=== PATIENT | male | born 1950 | race Caucasian/White ===

== ENCOUNTER 2019-04-20 16:10 | Emergency (ER) | payer OTHER ==
[~2019-04-20] VITALS: Ht 180.3 cm; Wt 77.1 kg
--- NOTE | 2019-04-20 16:27 | NUR ---
ED Nurse Note: Pt ambulated to ED d/t abdominal pain after pulling out his suprapubic catheter last night. Pt is AOx4, VSS, on RA. Placed on bed, Dr. Macario on bedside.
[2019-04-20 16:40] VITALS: BP 140/91
[2019-04-20] MEDS ORDERED: Morphine Sulfate 4mg/ml Inj (IV USE ONLY) IVP ONE (16:45)
--- NOTE | 2019-04-20 16:57 | Emergency Room Report ---
History of Present Illness General Chief Complaint: Abdominal Pain Source: Patient Present Illness HPI Disclaimer: Please note that this report is being documented using [employer] technology. This can lead to erroneous entry secondary to incorrect interpretation by the dictating instrument. HPI: 68-year-old male history of CKD and BPH presents for evaluation of abdominal pain and distention. Symptoms started approximately 14 hours ago. He states that over the past few months he has been seen at [facility] and diagnosed with an enlarged prostate as well as chronic kidney disease. He has had an indwelling Lemus for 2 months. Noted decrease output and foul smell to the urine over the past few days. He removed his Lemus catheter yesterday. He notes worsening abdominal pain distention and inability to urinate. He is following up with urology who have recommended surgery for his enlarged prostate however the patient is seeking alternative medications at this time. He denies fever or chills. He did note some right-sided flank pain but that is now resolved. Denies vomiting or diarrhea. Denies chest pain or shortness of breath. PMH: CKD, BPH PSH: Denies Allergies: Denies Social Hx: Occasional alcohol use Allergies: Coded Allergies: No Known Allergies (Unverified , 04/20/19) Nursing Documentation-PMH Past Medical History: No History, Except For Review of Systems All Other Systems: negative except mentioned in HPI Physical Exam Vital Signs Date Time Temp Pulse Resp B/P (MAP) Pulse Ox O2 Delivery O2 Flow Rate FiO2 04/20/19 16:16 97.5 94 20 140/91 (107) 99 Room Air General: Awake and alert, no acute distress HEENT: NC/AT. EOMI. Cardiovascular: RRR. S1 and S2 normal. No murmur appreciated Resp: Normal work of breathing. No cough, wheezing or crackles appreciated Abdomen: Mild suprapubic abdominal pain and mild distention. Non-peritonitic. No flank tenderness Skin: Intact. No abrasions, laceration or rash over the exposed skin MSK: Normal tone and bulk. Moving all extremities. No obvious deformity. Neuro: Awake and alert. Mentating appropriately. Medical Decision Making Diagnostic Impression: Primary Impression: UTI (urinary tract infection) Additional Impressions: Urinary retention CKD (chronic kidney disease) ER Course 68-year-old male with a history of BPH urinary retention and CKD presents for evaluation of abdominal pain and distention, foul-smelling urine for the past few days. He has now removed his Lemus catheter for 14 hours and notes worsening pressure and distention. Concern for urinary tract infection, pyelonephritis at this time. Will send labs to evaluate for kidney function, replace Lemus catheter, send urinalysis. Laboratory Tests Test 04/20/19 16:43 04/20/19 17:11 White Blood Count 10.3 K/UL (4.8-10.8) Red Blood Count 3.88 M/UL (4.70-6.10) L Hemoglobin 12.2 G/DL (14.2-18.0) L Hematocrit 37.8 % (42.0-52.0) L Mean Corpuscular Volume 98 FL (80-99) Mean Corpuscular Hemoglobin 31.5 PG (27.0-31.0) H Mean Corpuscular Hemoglobin Concent 32.3 G/DL (32.0-36.0) Red Cell Distribution Width 12.5 % (11.6-14.8) Platelet Count 356 K/UL (150-450) Mean Platelet Volume 7.4 FL (6.5-10.1) Neutrophils (%) (Auto) 89.2 % (45.0-75.0) H Lymphocytes (%) (Auto) 4.6 % (20.0-45.0) L Monocytes (%) (Auto) 5.4 % (1.0-10.0) Eosinophils (%) (Auto) 0.2 % (0.0-3.0) Basophils (%) (Auto) 0.6 % (0.0-2.0) Sodium Level 135 MMOL/L (136-145) L Potassium Level 5.1 MMOL/L (3.5-5.1) Chloride Level 99 MMOL/L (98-107) Carbon Dioxide Level 25 MMOL/L (21-32) Anion Gap 11 mmol/L (5-15) Blood Urea Nitrogen 29 mg/dL (7-18) H Creatinine 1.5 MG/DL (0.55-1.30) H Estimate Glomerular Filtration Rate 46.4 mL/min (>60) Glucose Level 146 MG/DL (74-106) H Calcium Level 10.4 MG/DL (8.5-10.1) H Total Bilirubin 0.3 MG/DL (0.2-1.0) Aspartate Amino Transferase (AST) 7 U/L (15-37) L Alanine Aminotransferase (ALT) 25 U/L (12-78) Alkaline Phosphatase 69 U/L (46-116) Total Protein 8.3 G/DL (6.4-8.2) H Albumin 4.2 G/DL (3.4-5.0) Globulin 4.1 g/dL Albumin/Globulin Ratio 1.0 (1.0-2.7) Urine Color Yellow Urine Appearance Cloudy Urine pH 6 (4.5-8.0) Urine Specific [place] 1.010 (1.005-1.035) Urine Protein 1+ (NEGATIVE) H Urine Glucose (UA) Negative (NEGATIVE) Urine Ketones Negative (NEGATIVE) Urine Blood 3+ (NEGATIVE) H Urine Nitrite Negative (NEGATIVE) Urine Bilirubin Negative (NEGATIVE) Urine Urobilinogen Normal MG/DL (0.0-1.0) Urine Leukocyte Esterase 3+ (NEGATIVE) H Urine RBC 5-10 /HPF (0 - 0) H Urine WBC Tntc /HPF (0 - 0) H Urine Squamous Epithelial Cells None /LPF (NONE/OCC) Urine Bacteria Many /HPF (NONE) H Reevaluation Time: 22:30 Last Vital Signs Date Time Temp Pulse Resp B/P (MAP) Pulse Ox O2 Delivery O2 Flow Rate FiO2 04/20/19 16:16 97.5 94 20 140/91 (107) 99 Room Air Reevaluation Impression Patient had moderate urinary retention though after placement of Lemus catheter he had significant improvement in his symptoms. Urinalysis consistent with acute urinary tract infection. Labs otherwise shows a slightly elevated creatinine and BUN consistent with his chronic kidney disease. No significant white count though there is a neutrophil predominance. Had ordered ceftriaxone for the patient however he refused. He states he does not want IV antibiotics at this time. He is amenable to taking oral medications simply does not want the IV forms. Patient states he is seeking alternative treatment remedies for his enlarged prostate although his urologist had recommended surgery. I strongly encouraged him to again speak with his urologist regarding treatment options and his diagnosis of urinary tract infection. 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 Clinically, he has no signs of pyelonephritis. We will start the patient on Augmentin. He will follow-up with his urologist and portfolio management marketing as well as PMD. Discussed reasons to return to the emergency department. He understands and agrees with this treatment plan. Disposition: HOME, SELF-CARE Condition: Improved Scripts Amoxicillin/Potassium Clav 875-125* (AUGMENTIN 875-125 TABLET*) 1 Each Tablet 1 TAB ORAL TWICE A DAY for 10 Days, #20 TAB Prov: Jimmy Macario MD 04/20/19 Referrals: [facility],REFERRING (PCP) Jimmy Macario MD Apr 20, 2019 16:57
--- NOTE | 2019-04-20 17:00 | NUR ---
ED Nurse Note: Lemus catheter with 16F inserted, pt tolerated well. Noted yellowish clear urine for about 2000cc. Pt verbalized relieved from pain. Will continue to monitor.
[2019-04-20 17:03] LABS: HEMATOCRIT 37.8 % (42.0-52.0); HEMOGLOBIN 12.2 G/DL (14.2-18.0); MEAN CORPUSCULAR VOLUME 98 FL (80-99); PLATELET COUNT 356 K/UL (150-450); RED BLOOD COUNT 3.88 M/UL (4.70-6.10); RED CELL DISTRIBUTION WIDTH 12.5 % (11.6-14.8); WHITE BLOOD COUNT 10.3 K/UL (4.8-10.8)
[2019-04-20 17:05] LABS: BASOPHILS % (AUTO) 0.6 % (0.0-2.0); EOSINOPHILS % (AUTO) 0.2 % (0.0-3.0); LYMPHOCYTES % (AUTO) 4.6 % (20.0-45.0); MONOCYTES % (AUTO) 5.4 % (1.0-10.0); NEUTROPHILS % (AUTO) 89.2 % (45.0-75.0)
--- NOTE | 2019-04-20 17:07 | NUR ---
ER DISCHARGE NOTE: Patient is cleared to be discharged per ERMD, pt is aox4, on room air, with stable vital signs. pt was given dc and prescription instructions, pt was able to verbalize understanding, pt id band and iv site removed without complications. pt is able to ambulate with steady gait. pt took all belongings.
--- NOTE | 2019-04-20 17:20 | NUR ---
ED Nurse Note: Per Dr. Macario, cancelled giving Rocephin 1gm; per pt's request.
[2019-04-20 17:21] LABS: APPEARANCE,URINE CLOUDY; BILIRUBIN, URINE NEGATIVE (NEGATIVE); GLUCOSE, URINE (UA) NEGATIVE (NEGATIVE); KETONES,URINE NEGATIVE (NEGATIVE); LEUKOCYTE ESTERASE ,URINE 3+ (NEGATIVE); NITRITE,URINE NEGATIVE (NEGATIVE); PH,URINE 6 (4.5-8.0); PROTEIN,URINE 1+ (NEGATIVE); UROBILINOGEN,URINE NORMAL MG/DL (0.0-1.0)
[2019-04-20 17:24] LABS: COLOR,URINE YELLOW
[2019-04-20 17:27] LABS: ANION GAP 11 mmol/L (5-15); BLOOD UREA NITROGEN 29 mg/dL (7-18); CALCIUM 10.4 MG/DL (8.5-10.1); CARBON DIOXIDE 25 MMOL/L (21-32); CHLORIDE 99 MMOL/L (98-107); CREATININE 1.5 MG/DL (0.55-1.30); POTASSIUM 5.1 MMOL/L (3.5-5.1); SODIUM 135 MMOL/L (136-145)
[2019-04-20 17:32] LABS: ALANINE AMINOTRANSFERASE 25 U/L (12-78); ALBUMIN 4.2 G/DL (3.4-5.0); ALKALINE PHOSPHATASE 69 U/L (46-116); ASPARTATE AMINO TRANSFERASE 7 U/L (15-37); BILIRUBIN,TOTAL 0.3 MG/DL (0.2-1.0)
[2019-04-20] MEDS ORDERED: cefTRIAXone 1 GM in NS 55 ML IVPB ONE (17:45)
[2019-04-20] MEDS ORDERED: AUGMENTIN 875-1 EAC1 ORAL ×2 (18:06)
[2019-04-20 18:31] VITALS: BP 140/91
== END 2019-04-20 17:07 | disposition home or self-care (01) ==
LOC: EMR 16:31
DX: N39.0 Urinary tract infection, site not specified (principal); N40.1 Benign prostatic hyperplasia with lower urinary tract symptoms; R33.8 Other retention of urine; N18.9 Chronic kidney disease, unspecified
CPT/HCPCS: 36415; 51702; 80053; 81003; 85025; 87086; 87181; 96374; 99284; J2270

== ENCOUNTER 2019-05-31 03:03 | Emergency (ER) | payer OTHER ==
[~2019-05-31] VITALS: Ht 180.3 cm; Wt 74.8 kg
[~2019-05-31 03:03] MED LIST: AUGMENTIN 875-1 EAC1 ORAL
--- NOTE | 2019-05-31 03:15 | NUR ---
ED Nurse Note: PT WALKED IN TO ED FROM HOME C/O URINARY CATHETER COMPLICATION WITH DYSURIA X2DAYS. PT STATES HE DRAINING LESS URINE THAN USUAL AND STATES HIS URINE IS CLOUDY X2DAYS. DENIES FEVER. AAOX4, AMBULATORY
[2019-05-31 03:25] VITALS: BP 136/91
--- NOTE | 2019-05-31 03:31 | Emergency Room Report ---
History of Present Illness General Chief Complaint: Male Urogenital Problems Source: Patient Present Illness [facility] Disclaimer: Please note that this report is being documented using [employer] technology. This can lead to erroneous entry secondary to incorrect interpretation by the dictating instrument. HPI: 68-year-old male history of CKD and BPH presents for abdominal discomfort and decreased urination. Symptoms present approximately 2 days. He noticed lower pelvic cramping and decreased outflow from his indwelling Lemus catheter. He also noted a more thick and mucoid appearance to the urine and increased cloudiness. He denies fever or chills. Denies flank or back pain. Denies nausea, vomiting or diarrhea. He has an appointment with his urologist, Dr. Good , in 3 days. 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 Denies pain in the testicles or penile discharge, bleeding otherwise. PMH: CKD, BPH PSH: Denies Allergies: Denies Social Hx: Occasional alcohol use COVID-19 risk:Contact w/high r: No COVID-19 risk:Travel to affect: No Has patient experienced frausto: No Allergies: Coded Allergies: No Known Allergies (Unverified , 04/20/19) Nursing Documentation-PMH Past Medical History: No History, Except For Review of Systems All Other Systems: negative except mentioned in HPI Physical Exam Vital Signs Date Time Temp Pulse Resp B/P (MAP) Pulse Ox O2 Delivery O2 Flow Rate FiO2 05/31/19 03:10 98.1 91 18 136/91 (106) 98 Room Air General: Awake and alert, no acute distress HEENT: NC/AT. EOMI. Resp: Normal work of breathing Abdomen: Soft, nondistended. Tenderness in the suprapubic region. No significant tenderness in the right or left lower quadrants. No masses. No rebound. : Lemus in place. No urethral discharge or bleeding. Testes in anatomic position. Skin: Intact. No abrasions, laceration or rash over the exposed skin MSK: Normal tone and bulk. Moving all extremities. No obvious deformity. Neuro: Awake and alert. Mentating appropriately Medical Decision Making Diagnostic Impression: Primary Impression: UTI (urinary tract infection) Additional Impression: CKD (chronic kidney disease) ER Course 68-year-old male history of BPH with chronic indwelling Lemus presents for evaluation of lower abdominal pain and cloudy urine for the past 2 days. Strong suspicion for recurrence of his urinary tract infection or possible obstruction of his Lemus. Lemus was replaced and UA was sent. Laboratory Tests Test 05/31/19 03:35 05/31/19 04:00 Sodium Level 127 MMOL/L (136-145) L Potassium Level 4.3 MMOL/L (3.5-5.1) Chloride Level 93 MMOL/L (98-107) L Carbon Dioxide Level 25 MMOL/L (21-32) Anion Gap 10 mmol/L (5-15) Blood Urea Nitrogen 27 mg/dL (7-18) H Creatinine 1.5 MG/DL (0.55-1.30) H Estimated Glomerular Filtration Rate 46.4 mL/min (>60) Glucose Level 110 MG/DL (74-106) H Calcium Level 9.5 MG/DL (8.5-10.1) Urine Color Pale yellow Urine Appearance Cloudy Urine pH 8 (4.5-8.0) Urine Specific [place] 1.015 (1.005-1.035) Urine Protein 3+ (NEGATIVE) H Urine Glucose (UA) Negative (NEGATIVE) Urine Ketones Negative (NEGATIVE) Urine Blood 5+ (NEGATIVE) H Urine Nitrite Positive (NEGATIVE) H Urine Bilirubin Negative (NEGATIVE) Urine Urobilinogen Normal MG/DL (0.0-1.0) Urine Leukocyte Esterase 3+ (NEGATIVE) H Urine RBC Tntc /HPF (0 - 0) H Urine WBC Tntc /HPF (0 - 0) H Urine Squamous Epithelial Cells Occasional /LPF Urine Bacteria Moderate /HPF (NONE) H Reevaluation Time: 05:49 Last Vital Signs Date Time Temp Pulse Resp B/P (MAP) Pulse Ox O2 Delivery O2 Flow Rate FiO2 05/31/19 03:10 98.1 91 18 136/91 (106) 98 Room Air Reevaluation Impression Kidney function unchanged from patient's baseline. He again shows evidence of acute urinary tract infection. Review of culture results from previous infection shows resistance to ciprofloxacin. Will start on Keflex. Had offered the patient an IV dose of ceftriaxone however he again refused IV antibiotics. He has an appointment to follow-up with his urologist in 3 days. I encouraged him to keep that appointment and to take the antibiotics until he meets with his urologist. His urologist can call for culture results. Lemus catheter was exchanged for a new one. Draining adequate urine. Otherwise, he is well-appearing stable vital signs and appropriate for outpatient follow-up. We discussed reasons to return to the emergency department. He understands and agrees with treatment plan. Disposition: HOME, SELF-CARE Condition: Stable Scripts Cephalexin* (KEFLEX*) 500 Mg Capsule 500 MG ORAL EVERY 12 HOURS, #14 CAP 0 Refills Prov: Jimmy Macario MD 05/31/19 Jimmy Macario MD May 31, 2019 03:31
[2019-05-31] MEDS ORDERED: Morphine Sulfate 2mg/ml Inj(IV/IM USE ONLY) IVP ONE (03:45)
[2019-05-31] MEDS ORDERED: Morphine Sulfate 4mg/ml Inj (IV USE ONLY) IVP ONE (03:45)
--- NOTE | 2019-05-31 03:45 | NUR ---
ED Nurse Note: urine and blood collected and sent to lab
[2019-05-31 03:57] LABS: ANION GAP 10 mmol/L (5-15); BLOOD UREA NITROGEN 27 mg/dL (7-18); CALCIUM 9.5 MG/DL (8.5-10.1); CARBON DIOXIDE 25 MMOL/L (21-32); CHLORIDE 93 MMOL/L (98-107); CREATININE 1.5 MG/DL (0.55-1.30); POTASSIUM 4.3 MMOL/L (3.5-5.1); SODIUM 127 MMOL/L (136-145)
[2019-05-31 04:12] LABS: APPEARANCE,URINE CLOUDY; BILIRUBIN, URINE NEGATIVE (NEGATIVE); COLOR,URINE PALE YELLOW; GLUCOSE, URINE (UA) NEGATIVE (NEGATIVE); KETONES,URINE NEGATIVE (NEGATIVE); LEUKOCYTE ESTERASE ,URINE 3+ (NEGATIVE); NITRITE,URINE POSITIVE (NEGATIVE); PH,URINE 8 (4.5-8.0); PROTEIN,URINE 3+ (NEGATIVE); UROBILINOGEN,URINE NORMAL MG/DL (0.0-1.0)
[2019-05-31] MEDS ORDERED: Cephalexin 250mg/5ml Susp 100mL Bottle ORAL ONE (05:30)
[2019-05-31] MEDS ORDERED: CEPHALEXIN500 MG ORAL (05:33)
[2019-05-31] MEDS ORDERED: Cephalexin 500mg cap ORAL ONE (05:45)
[2019-05-31 05:50] VITALS: BP 125/82
== END 2019-05-31 05:50 | disposition home or self-care (01) ==
LOC: EMR 03:26
DX: N39.0 Urinary tract infection, site not specified (principal); N18.9 Chronic kidney disease, unspecified
CPT/HCPCS: 36415; 80048; 81003; 87086; 87181; 96374; 99284; J2270

== ENCOUNTER 2019-06-27 11:36 | Emergency (ER) | payer OTHER ==
[~2019-06-27] VITALS: Ht 180.3 cm; Wt 74.8 kg
[~2019-06-27 11:36] MED LIST changes: +CEPHALEXIN500 MG ORAL
[2019-06-27 11:38] VITALS: BP 131/84
--- NOTE | 2019-06-27 11:45 | NUR ---
ED Nurse Note: patient walked into ED from home c/o possible urinary tract infection. patient c/o abdominal pain and less output in his indwelling cárdenas since last night. patient is alert awake x4 ambulatory, breathing unlabored and even. denies fever. patient placed on a hospital gown.
--- NOTE | 2019-06-27 13:03 | Emergency Room Report ---
History of Present Illness General Chief Complaint: Male Urogenital Problems Source: Patient Present Illness HPI This patient has an indwelling Cárdenas catheter. States he has noticed no urine output in his Cárdenas catheter for the past 15 hours. He states he is having significant pain in his lower abdomen. He states he also thinks he may have a urinary tract infection because his urine has been cloudy for the past 4 days. He denies fever or chills. He denies nausea or vomiting. Denies chest pain shortness of breath. He has no other complaints. Allergies: Coded Allergies: No Known Allergies (Unverified , 04/20/19) COVID-19 Screening Contact w/high risk pt: No Recent Travel to affected area: No Experienced COVID-19 symptoms?: No Patient History Past Medical History: see triage record, renal disease, other - BPH/indwelling cárdenas catheter. Social History: Reports: smoking; Denies: alcohol use, drug use Reviewed Nursing Documentation: PMH: Agreed; PSxH: Agreed Nursing Documentation-PMH Past Medical History: No History, Except For Review of Systems All Other Systems: negative except mentioned in HPI Physical Exam Vital Signs Date Time Temp Pulse Resp B/P (MAP) Pulse Ox O2 Delivery O2 Flow Rate FiO2 06/27/19 11:38 97.9 99 22 131/84 97 Room Air Sp02 EP Interpretation: reviewed, normal General Appearance: no apparent distress, alert, GCS 15, non-toxic Head: normocephalic, atraumatic Eyes: bilateral eye normal inspection ENT: hearing grossly normal, normal pharynx, no angioedema, normal voice Neck: normal inspection, full range of motion Respiratory: no respiratory distress, no retraction, no accessory muscle use, speaking full sentences Gastrointestinal: normal bowel sounds, soft, non-distended, no guarding, no rebound, tenderness - TTP and distended over lower abdomen. Rectal: deferred Genitourinary: normal inspection, other - Cárdenas in place. No urine in bag. Musculoskeletal: back normal, normal range of motion, gait/station normal, non- tender Neurologic: alert, motor strength/tone normal, oriented x3, sensory intact, responsive, speech normal Psychiatric: judgement/insight normal, memory normal, mood/affect normal, no suicidal/homicidal ideation Medical Decision Making Diagnostic Impression: Primary Impression: Obstructed Cárdenas catheter Additional Impression: UTI (urinary tract infection) ER Course This patient has an obstructed Cárdenas catheter. The Cárdenas catheter was in place without complication or incident. Over a liter of clear urine was obtained with complete relief of the patient's pain. Patient has a history of urinary tract infections. I did review the last urine culture and microbiology. The patient was sensitive to Septra at that time. The patient is nontoxic overall and well-appearing without evidence of systemic infection. I will place the patient on a course of Septra. The patient is given close return precautions and follow-up instructions. Laboratory Tests Test 06/27/19 12:35 Urine Color Pending Urine Appearance Pending Urine pH Pending Urine Specific [place] Pending Urine Protein Pending Urine Glucose (UA) Pending Urine Ketones Pending Urine Blood Pending Urine Nitrite Pending Urine Bilirubin Pending Urine Urobilinogen Pending Urine Leukocyte Esterase Pending Last Vital Signs Date Time Temp Pulse Resp B/P (MAP) Pulse Ox O2 Delivery O2 Flow Rate FiO2 06/27/19 11:38 97.9 99 22 131/84 (100) 97 Room Air Status: improved Disposition: HOME, SELF-CARE Condition: Improved Patient Instructions: Urinary Tract Infection Reny Ortega DO Jun 27, 2019 13:02
[2019-06-27 13:20] LABS: APPEARANCE,URINE SLIGHTLY CLOUDY; BILIRUBIN, URINE NEGATIVE (NEGATIVE); COLOR,URINE PALE YELLOW; GLUCOSE, URINE (UA) NEGATIVE (NEGATIVE); KETONES,URINE NEGATIVE (NEGATIVE); LEUKOCYTE ESTERASE ,URINE 3+ (NEGATIVE); NITRITE,URINE NEGATIVE (NEGATIVE); PH,URINE 8 (4.5-8.0); PROTEIN,URINE 2+ (NEGATIVE); UROBILINOGEN,URINE NORMAL MG/DL (0.0-1.0)
[2019-06-27] MEDS ORDERED: BACTRIM DS TAB1 EAC1 ORAL (13:26)
[2019-06-27 13:27] VITALS: BP 131/84
--- NOTE | 2019-06-27 13:27 | NUR ---
ELOPEMENT: patient eloped, patient left the ED without prescription or discharge instructions and without RN to talk to him. after elopment, admitting staff said that as he left, patient let the admitting staff know that he will call back for the UA result.
--- NOTE | 2019-06-27 13:30 | NUR ---
ED Nurse Note: notified to Dr. Ortega that patient eloped.
== END 2019-06-27 13:27 | disposition home or self-care (01) ==
LOC: EMR 12:39
DX: T83.098A Other mechanical complication of other urinary catheter, initial encounter (principal); N39.0 Urinary tract infection, site not specified; X58.XXXA Exposure to other specified factors, initial encounter; Y92.9 Unspecified place or not applicable
CPT/HCPCS: 81003; 87086; 87181; 99283